=== PATIENT | male | born 1970 | race Caucasian/White ===

== ENCOUNTER 2022-12-22 10:31 | Outpatient (CLI) | payer MEDICARE, SELFPAY | END 2022-12-22 10:32 | disposition home or self-care (01) | PROVIDERS: PCP Family Medicine; Visit Provider Family Medicine | DX: Z00.00 Encounter for general adult medical examination without abnormal findings (principal); E11.9 Type 2 diabetes mellitus without complications; R53.83 Other fatigue; Z12.5 Encounter for screening for malignant neoplasm of prostate | CPT/HCPCS: 80048; 80061; 84153; 84403; 84443; 85025 ==

== ENCOUNTER 2023-04-27 09:38 | Outpatient (RCR) | payer MEDICARE, SELFPAY ==
--- NOTE | 2023-04-27 10:51 | PT.OPEX ---
PT [place] [facility] Eval PT [facility] Out[facility] Eval Start: 04/27/23 09:45 Freq: Status: Active Protocol: Document 04/27/23 09:50 ARR (Rec: 04/27/23 10:45 ARR [id number]) E-signed By Rossy Stallings DPT Physical Therapy Outpatient Evaluation Insurance Information Recert Due Date 04/27/23 Insurance Name Medicare B Medical Diagnosis M17.11 unilateral primary OA, right knee Z96.651 presence of right artificial knee joint S/p R TKA . One session prior to surgery. Post op to be done at [facility] PT. Treating Diagnosis M25.561 right knee pain M25.661 right knee stiffness Referring KEVIN Goodman ([facility]) Subjective Subjective Has TKA upcoming on 05/07. Has long history of LBP and surgeries with rods placed -Location of pain: R knee -Increases in pain: stairs ( must use step to pattern), walking PMHx: CAD, umbilical hernia, R knee OA, chronic LBP, peripheral neuropathy, PAULINE, HTN. Surgical history for partial L TKA, ORIF, lumbar surgery, R knee scope 2011. Objective Other/Pertinent Objective Knee ROM: -Flexion 130 L / 110 R -Extension 0 L / 15 R (lacking extension) OTHER: -Reduced patella glide all directions -Quad inhibition on R side -Negative extensor lag, lacking ext due to posterior chain tightness - Gait: antalgic gait with reduced WB'ing through R LE Assessment Assessment/Impression Pt is a 52 y/o male who presents with concerns of R knee pain with upcoming TKA on 05/07/23.. Patient also has notable objective findings including decreased knee ROM, quad inhibition, and weakness also likely contributing to the problem. Patient is a good candidate for skilled therapy to target deficits described above. Skilled PT intervention is necessary for use of therapeutic exercise manual therapy, neuromuscular re- education, gait training, and therapeutic activity. Functional impairments include difficulty with: walking, stairs. See appropriate sections of PT eval for complete list of goals and POC . D/C plan and criteria is for pt to achieve the goals as listed below or until max rehab potential is met. Pt was agreeable with plan of care and goals established. This will be a one time visit with treatment only as pt will be discharged after today and getting continued post op care at [facility] PT. Plan of Care Rehabilitation Potential Good Physical Therapy Goals STG (within 1 session) 1) Pt will be indep in HEP for pre-op exercises Treatment Plan/Direct Interventions Therapeutic Activities, Therapeutic Exercises Frequency/Duration 1 visit within 1 day Patient Will Be Discharged From Therapy Completion of LTG(s), Independent w/HEP Evaluation Billing Untimed Code Treatment Minutes 15 Complexity Moderate Certification Information Initial Certification Date 04/27/23 Ending Certification Date 04/27/23 Provider Signature Shows Agreement With POC & Medical Necessity Physician Signature & Date Requested Please Sign/Date Here Physician Comment/Change : Physician NPI Number #
== END 2023-08-25 23:59 | disposition home or self-care (01) ==
PROVIDERS: PCP Family Medicine; Visit Provider Physician Assistant
DX: M17.11 Unilateral primary osteoarthritis, right knee (principal); Z51.89 Encounter for other specified aftercare
CPT/HCPCS: 97110; 97162; 97530; A9270; J2250; J3010

== ENCOUNTER 2023-05-05 09:51 | Outpatient (CLI) | payer MEDICARE, SELFPAY ==
[2023-05-05 14:53] LABS: PCR FLU A Negative PCR FLU A (Negative); PCR FLU B Negative PCR FLU B (Negative); PCR RSV Negative PCR RSV (Negative); SARS PCR* Negative SARS-CoV-2 (Negative)
== END 2023-05-05 09:52 | disposition home or self-care (01) ==
PROVIDERS: PCP Family Medicine; Visit Provider Family Medicine
DX: Z01.818 Encounter for other preprocedural examination (principal); J02.9 Acute pharyngitis, unspecified
CPT/HCPCS: 80048; 85025; 87631

== ENCOUNTER 2023-05-07 10:52 | Day surgery (SDC) | payer MEDICARE, SELFPAY ==
[2023-05-07] VITALS (19 sets, daily range): BP systolic 117–182; BP diastolic 59–115; PULSE 48–72; RESP 14–20; TEMP 35.7–36.8; O2SAT 93–98; BMI 35.2
[2023-05-07] MEDS: OXYCODONE (CR) 10 MG TAB.ER.12H PO (11:55)
[2023-05-07] MEDS: CELECOXIB 200 MG CAPSULE PO (11:55)
[2023-05-07] MEDS: ACETAMINOPHEN 500 MG TABLET 1000 MG PO ×2 (11:55→18:33)
[2023-05-07] MEDS: SODIUM CHLORIDE 0.9 % (FLUSH) 10 ML SYRINGE IVF (12:00)
[2023-05-07] MEDS: LACTATED RINGERS 1000 ML 1,000 ML 100 ML IV ×2 (12:00→13:30)
[2023-05-07] MEDS: MIDAZOLAM HCL 1 MG/ML inj IVP (12:40)
[2023-05-07] MEDS: fentaNYL 100 MCG/2 ML inj IVP (12:40)
--- NOTE | 2023-05-07 12:49 | SUR.PREOP ---
TIME?OUT:?1238 PT/RN/MDA?VERIFICATION?OF?SURGICAL?SITE,?PROCEDURE,?AND?CONSENT OBTAINED?PRIOR?TO?INVASIVE?PROCEDURE.
[2023-05-07] MEDS: CEFAZOLIN 2 GM INJ IVP (13:00)
[2023-05-07] MEDS: TRANEXAMIC ACID 100 MG/ML INJ 1000 MG IV (13:03)
--- NOTE | 2023-05-07 14:27 | CRLHL7_ITS ---
For Patients: As a result of the Cures Act, medical imaging exams and procedure reports are released immediately into your electronic medical record. You may view this report before your referring provider. If you have questions, please contact your health care provider. Indication: post op TKA Technique: 2 views right knee Findings/Impression: Hardware from a right total knee arthroplasty is in satisfactory position. Bone alignment is normal. No sign of acute fracture. Postop changes are within normal limits. Dictated by Hussain Kaur MD @ 05/07/2023 3:49:35 PM (Electronically Signed)
--- NOTE | 2023-05-07 14:28 | PM.ORPRC ---
Procedure Note Date of procedure: 05/07/23 Procedure: PREOPERATIVE DIAGNOSIS: Right knee osteoarthritis POSTOPERATIVE DIAGNOSIS: Right knee osteoarthritis NAME OF OPERATION: Right total knee arthroplasty SURGEON: Steve Spain MD INTEL RECRUITER: Dalia Martines PA-C ANESTHESIA: Spinal ESTIMATED BLOOD LOSS: 0 mL COMPLICATIONS: None SPECIMENS: None DRAINS: None PREOPERATIVE ANTIBIOTICS: Ancef 2 grams, antibiotic impregnated cement IMPLANTS: 1. J&J Attune # 8 posterior stabilized femur 2. # 9 fixed-bearing tibia 3. # 8 posterior stabilized, 5 mm fixed-bearing polyethylene 4. 41 patella INDICATIONS: The patient is a 52-year-old with a longstanding history of severe, unrelenting right knee pain secondary to end-stage (grade IV) right knee osteoarthritis. Despite appropriate nonoperative management, including activity modification, anti-inflammatories, mvcm-eyv-vwfflbp pain medication, bracing, physical therapy, and injections they continue to have pain and disability. Operative intervention was offered. The risks, benefits and expected outcomes were discussed in detail. These included but were not limited to: Infection, bleeding, injury to blood vessel or nerve, venous thromboembolism. All questions were answered to their satisfaction. Use of an assistant corporate controller was necessary throughout the case for patient positioning and safety, soft tissue retraction, and closure. PROCEDURE: Spinal anesthesia was administered. The patient was placed supine on the operating table. The assistant corporate controller made sure the patient was positioned appropriately. The lower extremity was prepped and draped in the usual sterile fashion. The limb was exsanguinated with the Ho bandage. The pneumatic tourniquet was inflated to 300 mmHg. A standard anterior incision was made with the knee in flexion. Subcutaneous dissection was sharply taken through fascial layer #1. Full-thickness medial and lateral flaps were elevated. The assistant corporate controller retracted the soft tissues and protected them throughout the case. A standard medial parapatellar approach was made. The patella was everted. The infrapatellar fat pad was preserved. The menisci and cruciate ligaments were sharply d?brided. Marginal osteophytes were d?brided with the rongeur. The drill was used to penetrate the femoral canal. The canal was aspirated and irrigated with pulse lavage. The intramedullary femoral guide was placed for a 5-degree valgus cut, removing 12 mm off the distal femur. The saw was used to make the cut. Whitesides line and the trans epicondylar axis were marked. The femoral sizing guide was pinned onto the distal femur. Three degrees of external rotation nicely parallels the transepicondylar axis. Pins were placed for posterior referencing. The four-in-one cutting guide was pinned onto the distal femur. The anterior, posterior, and chamfer cuts were made. The assistant corporate controller protected the collateral ligaments. The box cutting guide was pinned. The box cuts were made. The boxed trial was placed and was an excellent fit. Drill holes for the lugs were made. Attention was then turned to the proximal tibia. The extramedullary tibial guide was placed for a neutral varus/valgus cut with 5 degrees of posterior slope, removing 2 mm based off the medial tibial surface. The assistant corporate controller protected the collateral ligaments and the neurovascular bundle. The saw was used to make the cut. Trial components were placed. The knee was tight in both flexion and extension. Therefore, we really placed the tibial cutting guide, advancing it 2 mm distally and recut the tibia. We replaced the trial components. Now the knee was nicely balanced in both flexion and extension. The trial components were removed. The tray was placed in appropriate rotation, parallel to our tibial cutting pins. It was pinned by the assistant corporate controller and the drill and the punch were used. The tray was removed. The punch was used again. We placed a bone plug in the femoral canal. Attention was then turned to the patella. Quileute patellar thickness was 28.5 mm. The lobster claw resection guide was used with the 9.5 mm tristin. The saw was used to make the cut. Drill holes were made by the assistant corporate controller. The trial was placed and was an excellent fit. Cancellous surfaces were irrigated with pulse lavage and thoroughly dried by the assistant corporate controller. We cemented the tibial component, then the femoral component. We impacted the 5 mm polyethylene onto the tibial tray. The knee was brought into full extension. We then cemented the patellar component. Excessive cement was removed. The cement was allowed to harden. The knee was taken through a range of motion and was found to be nicely balanced in both flexion and extension. The patella tracks centrally. The assistant corporate controller did a three minute dilute Betadine solution soak. The assistant corporate controller irrigated the wound with 3 liters of normal saline via pulse lavage. The assistant corporate controller reapproximated the extensor mechanism with #1 Vicryl in an interrupted edkrqs-mh-gkxry fashion. The assistant corporate controller then ran the extensor mechanism with a #1 PDO Stratafix. The assistant corporate controller closed the subcutaneous tissues with a 3-0 Stratafix and the skin with a running 3-0 Stratafix in a subcuticular fashion. Glue was used to seal the skin. The assistant corporate controller placed a dry dressing, KAYCEE stocking, and Polar Care. Sponge and needle counts were correct x2. The patient tolerated the procedure well. There were no apparent complications. They were carefully transferred to the hospital bed and taken to the postanesthesia care unit in satisfactory condition. PLAN: The patient will be mobilized with physical therapy. Aspirin will be used for DVT prophylaxis. They will be discharged to home once medically appropriate.
--- NOTE | 2023-05-07 15:01 | P.NB_ITS ---
Nerve Block Nerve Block Time Seen by Provider: 12:45 Date Seen: 05/07/23 Type of block requested by surgeon for post-operative analgesia: geniculars Side: right Time out performed: Yes Verification of patient name: Yes Verification of date of : Yes Site marking: site marked Name of person performing procedure: Prosper Continuous monitoring Was continuous monitoring of O2 sat, B/P, semiconductor packages leak tester, recorded every 15 minutes?: Yes Procedure Checklist: sterile prep, needles and gloves Medications given in 5ml increments after negative aspiration: Ropivicaine %: 0.5 mL: 9 Needle gauge: 25 Patient tolerated procedure well: Yes Block Charges Block Charge (with Pro Fee): Genicular Nerve Block Use of Ultrasound Machine for Block: No
--- NOTE | 2023-05-07 15:01 | W.PM.NB ---
Nerve Block Nerve Block Time Seen by Provider: 12:45 Date Seen: 05/07/23 Type of block requested by surgeon for post-operative analgesia: adductor canal Side: right Time out performed: Yes Verification of patient name: Yes Verification of date of : Yes Site marking: site marked Name of person performing procedure: Prosper Continuous monitoring Was continuous monitoring of O2 sat, B/P, playground monitor, recorded every 15 minutes?: Yes Procedure Checklist: sterile prep, needles and gloves Ultrasound guided. Images saved: Yes Medications given in 5ml increments after negative aspiration: Ropivicaine %: 0.5 mL: 20 Needle gauge: 20 Decadron (mg): 10 Precedex (mcg): 25 Patient tolerated procedure well: Yes Additional comments: Needle noted adjacent to nerve Block Charges Block Charge (with Pro Fee): Femoral Nerve Use of Ultrasound Machine for Block: Yes- US Guidance/pain block
--- NOTE | 2023-05-07 15:02 | W.ANESCHARGE ---
Anesthesia Charges Start Date/Time Anesthesia Start Date: 05/07/23 Anesthesia Start Time: 12:50 Stop Date/Time Anesthesia Stop Date: 05/07/23 Anesthesia Stop Time: 15:27
--- NOTE | 2023-05-07 15:28 | W.ANESCHARGE ---
Anesthesia Charges Start Date/Time Anesthesia Start Date: 05/07/23 Anesthesia Start Time: 12:50 Stop Date/Time Anesthesia Stop Date: 05/07/23 Anesthesia Stop Time: 15:27
--- NOTE | 2023-05-07 16:06 | SUR.PHASEI ---
patient met discharge criteria per anesthesia
--- NOTE | 2023-05-07 16:55 | PM.IMCN1 ---
Date of Consult Patient: [facility] Patient Consult date: 05/07/23 Requesting Physician: Orthopedics Primary Care Provider: Hussain Davis MD Consult Narrative Reason for consult: Postoperative medical management Narrative: Ruslan Raines is a 52 year old male seen in followup of right total knee arthroplasty for management of medical problems. Procedure performed today by Dr. Spain. No complications. Dr. Spain has requested consultation. Patient reports no concerns at this time. His block is just beginning to wear off and he is not having significant pain. He has no nausea. No shortness of breath. Preop physical 2 days ago diagnosed with acute bronchitis. Chest x-ray showed no acute infiltrate. Testing for influenza a and B, COVID, RSV were negative. Treated with Zithromax. He reports still having some cough. He has a little hoarseness in his voice. No fever. No dyspnea. Review of Systems Narrative: Review of systems negative except as noted above [facility] Medical History (Updated 05/07/23 @ 17:04 by Chip Soriano MD) Sleep apnea ?G47.30 - Sleep apnea, unspecified (ICD-10) Obesity ?E66.9 - Obesity, unspecified (ICD-10) Dyslipidemia ?E78.5 - Hyperlipidemia, unspecified (ICD-10) Coronary artery calcification ?I25.10 - Atherosclerotic heart disease of [place] coronary artery without angina pectoris (ICD-10) ?I25.84 - Coronary atherosclerosis due to calcified coronary lesion (ICD-10) Umbilical hernia ?K42.9 - Umbilical hernia without obstruction or gangrene (ICD-10) Osteoarthritis of right knee ?M17.11 - Unilateral primary osteoarthritis, right knee (ICD-10) Ptosis of eyelid, left ?H02.402 - Unspecified ptosis of left eyelid (ICD-10) Chronic low back pain ?M54.50 - Low back pain, unspecified (ICD-10) ?G89.29 - Other chronic pain (ICD-10) Erectile dysfunction ?N52.9 - Male erectile dysfunction, unspecified (ICD-10) Peripheral neuropathy ?G62.9 - Polyneuropathy, unspecified (ICD-10) Major depression, recurrent ?F33.9 - Major depressive disorder, recurrent, unspecified (ICD-10) PAULINE (generalized anxiety disorder) ?F41.1 - Generalized anxiety disorder (ICD-10) GERD (gastroesophageal reflux disease) ?K21.9 - Gastro-esophageal reflux disease without esophagitis (ICD-10) Primary hypertension ?I10 - Essential (primary) hypertension (ICD-10) Surgical History (Updated 05/07/23 @ 17:02 by Chip Soriano MD) History of arthroplasty of right knee ?Z96.651 - Presence of right artificial knee joint (ICD-10) History of vasectomy ?Z98.52 - Vasectomy status (ICD-10) History of total left knee replacement (TKR) ?Z96.652 - Presence of left artificial knee joint (ICD-10) History of arthroscopy of right knee (~2011) ?Z98.890 - Other specified postprocedural states (ICD-10) History of eye surgery ?Z98.890 - Other specified postprocedural states (ICD-10) History of open reduction and internal fixation (ORIF) procedure (2006) ?Z98.890 - Other specified postprocedural states (ICD-10) History of lumbar surgery ?Z98.890 - Other specified postprocedural states (ICD-10) Family History Father Coronary artery disease Paternal Grandfather Coronary artery disease Maternal Grandfather Coronary artery disease Brother Alcohol dependence Depression High blood pressure Mother Depression Sister Alcohol dependence Social History (Updated 05/07/23 @ 16:59 by Chip Soriano MD) Narrative: He lives with 2 roommates in [place]. One of his roommates is Sierra uriarte. She is present with him now and is his healthcare power of ip technology transactions attorney. Code status is DNR. He reports that he smokes and drinks about twice a month at social events with friends. What is your current living situation?: I presently have a place to live Problems where you live: no known problems In the past 12 months, utilities in danger of being shut off: no In past 12 months, lack of transportation kept you from medical appts, meetings, work, or getting things needed for daily living: no In the past 12 mos, have been you worried that your food would run out before you had money to buy more?: never true In the past 12 mos, the food you bought just didn't last and you didn't have money to buy more?: never true Highest level of school completed/degree received: decline to answer Smoking Status: Current some day smoker What tobacco products do you use: cigarettes Second hand tobacco smoke exposure: No How often do you have a drink containing alcohol: 2-4 times a month AUDIT-C Alcohol total score: 2 Non-prescribed substance use: denies use How often does anyone, including family, friends and others, physically hurt you: never How often does anyone, including family, friends and others, insult or talk down to you: never How often does anyone, including family, friends and others, threaten you with harm: never How often does anyone, including family, friends and others, scream or curse at you: never Little interest or pleasure in doing things: not at all Feeling down, depressed, or hopeless: not at all Meds Home Medications and Allergies Home Medications Medication Instructions Recorded Confirmed Type paroxetine HCl 40 mg tablet (Paxil) 40 mg PO DAILY 05/07/23 05/07/23 History Allergies Allergy/AdvReac Type Severity Reaction Status Date / Time No Known Drug Allergies Allergy Verified 05/05/23 09:49 Exam Narrative: Exam Narrative: He is alert and appears in no distress. Oropharynx with small airway. Neck is supple without mass or adenopathy. Respirations are clear to auscultation. Good air exchange all lung sam. Cardiovascular: S1, S2, distant heart sounds. No murmur gallop or rub. Abdomen: Bowel sounds active. Abdomen is soft without tenderness or mass. Lower extremities with some persistent numbness and weakness related to his block. He has no edema and intact pulses. Const: Vital Signs, click to edit/add: Vital Signs - 24 hr 05/07/23 11:21 05/07/23 12:42 05/07/23 15:24 Temperature 98.2 F 98.2 F Pulse Rate 53 L 57 L 61 Pulse Rate [Right Pulse Oximeter] Respiratory Rate 20 20 16 Blood Pressure 160/97 H 162/100 H 142/88 H Blood Pressure [Ri ght Arm] Pulse Oximetry 96 98 93 Oxygen Delivery Me thod Room Air Nasal Cannula Room Air Oxygen Flow Rate 3 05/07/23 15:30 05/07/23 15:35 05/07/23 15:40 Temperature 98.2 F 98.2 F 98.2 F Pulse Rate 64 62 48 L Pulse Rate [Right Pulse Oximeter] Respiratory Rate 14 14 14 Blood Pressure 140/105 H 151/93 H 150/94 H Blood Pressure [Ri ght Arm] Pulse Oximetry 95 95 95 Oxygen Delivery Me thod Room Air Room Air Room Air Oxygen Flow Rate 05/07/23 15:45 05/07/23 15:50 05/07/23 15:55 Temperature 98.2 F 97.3 F L 97.3 F L Pulse Rate 53 L 56 L 53 L Pulse Rate [Right Pulse Oximeter] Respiratory Rate 14 14 16 Blood Pressure 157/90 H 141/101 H 137/85 Blood Pressure [Ri ght Arm] Pulse Oximetry 96 96 96 Oxygen Delivery Me thod Room Air Room Air Room Air Oxygen Flow Rate 05/07/23 16:00 05/07/23 16:15 05/07/23 16:30 Temperature 96.4 F L 96.2 F L Pulse Rate Pulse Rate [Right Pulse Oximeter] 56 L 57 L 58 L Respiratory Rate 16 16 Blood Pressure Blood Pressure [Ri ght Arm] 117/59 L 131/89 160/99 H Pulse Oximetry 98 95 95 Oxygen Delivery Me thod Room Air Room Air Room Air Oxygen Flow Rate Documenting provider has reviewed patient's vital signs: yes Assessment and Plan Assessment and plan (1) History of arthroplasty of right knee: Problem comment: 05/07/2023. Dr. Spain. No complications. Status: Acute (2) Sleep apnea: Problem comment: Patient has been referred to sleep studies in the past. Never has followed through. Clinically appears to have sleep apnea. Monitor while in hospital Status: Suspected (3) Primary hypertension: Problem comment: with long history of proteinuria. Resume home medicine as blood pressure allows. Status: Chronic Plan 52-year-old male admitted to the hospital for right total knee arthroplasty. Doing well. Monitor chronic medical problems in the hospital and outpatient follow-up to address dyslipidemia and sleep apnea. Total time spent today is 40 minutes, 30 minutes in coordination of care and discussing with patient and other providers ongoing evaluation management of chronic medical problems and recovery from the surgery
[2023-05-07] MEDS: CARBOXYMETHYLCELLULOSE (REFRESH PLUS) TEARS 1 DROP EYE-BOTH ×2 (17:14→20:52)
[2023-05-07] MEDS: OXYCODONE 5 MG TABLET PO ×3 (17:47→21:52)
[2023-05-07] MEDS: CEFAZOLIN 2 GM in 0.9 % SODIUM CHLORIDE Mini-bag 100 ML IVPB (18:34)
--- NOTE | 2023-05-07 19:15 | PC.NURSE ---
End of shift report - Pt arrived to unit from PACU at approximately 16:00. Pt alert, oriented, and cooperative. Pt tolerating regular diet and fluids. Dressing clean, dry, and intact and cryocuff is in place. Pt reported pain as 8/10 at incision site. Medications given per MAR with little relief. Pt refused Dilaudid, voiced concerns related to potential medication reactions. Pt has not ambulated since surgery, has yet to void. Continues with IV fluids per MAR.
[2023-05-07] MEDS: SENNOSIDES 1 TAB TABLET 2 TAB PO (20:50)
[2023-05-07] MEDS: carvediloL 25 MG TABLET PO (20:51)
[2023-05-07] MEDS: HYDROmorphone 0.5 mg/0.5 ml inj IVP (20:51)
[2023-05-07] MEDS: ASPIRIN 81 MG TABLET EC PO (20:51)
[2023-05-07] MEDS: diphenhydrAMINE 50 MG/ML inj IVP (21:03)
[2023-05-07] MEDS: LACTATED RINGERS 1000 ML 1,000 ML 75 ML IV (23:37)
[2023-05-08] MEDS: ACETAMINOPHEN 500 MG TABLET 1000 MG PO ×2 (00:44→06:39)
[2023-05-08] MEDS: OXYCODONE 5 MG TABLET PO ×4 (00:45→09:30)
[2023-05-08] MEDS: ZOLPIDEM 5 MG TABLET 10 MG PO (00:45)
[2023-05-08] MEDS: hydrOXYzine pamoate 25 MG CAPSULE PO ×3 (00:45→10:46)
[2023-05-08 03:00] VITALS: BP 166/94; PULSE 64; RESP 18; TEMP 36.3; O2SAT 97
[2023-05-08] MEDS: CEFAZOLIN 2 GM in 0.9 % SODIUM CHLORIDE Mini-bag 100 ML IVPB (03:11)
[2023-05-08 06:33] LABS: Basophils Percent Auto 0.1 % (0.0-3.0); Hematocrit 48.6 % (37.0-53.0); Hemoglobin* 16.3 gm/dL (13.5-17.5); Immature Granulocytes Pct Auto 0.2 %; Lymphocytes Percent Auto 7.1 % (20-44); Mean Corpuscular HGB Conc 34 gm/dL (32-36); Mean Corpuscular Hemoglobin 31 pg (26-34); Mean Corpuscular Volume 93 fL (80-100); Monocytes Percent Auto 4.4 % (0.0-11.0); Neutrophils Percent Auto 88.2 % (42.0-72.0); Platelet Count* 214 K/uL (140-440); RDW Coefficient of Variation % 11.6 % (11.5-15.5); Red Blood Count 5.22 m/uL (4.30-5.90); White Blood Count* 14.35 K/uL (4.50-11.00)
--- NOTE | 2023-05-08 06:34 | PC.NURSE ---
Nursing shift note, 2850-2200: Pt alert and oriented. Rates pain 7-9/10 to R knee, cryo cuff in place, PRN Oxycodone, Atarax, scheduled Tylenol admin. Pt states tolerating pain but will get sharp, high intensity pain with movements. TEDs on, pt ref plexi boots on NOC. Saline locked after scheduled IV abx. Vitals stable, aside from con?t elevated BP, last one 166/94, pt denies symptoms. Able to sleep in between cares. Up SBA w/ walker to bathroom, voiding, no BM this shift. Tolerating PO intake, denies nausea. Pt uses call light appropriately.??
[2023-05-08] MEDS: OMEPRAZOLE 20 MG CAPSULE DR PO (06:39)
[2023-05-08 06:49] LABS: Potassium* 4.2 mmol/L (3.6-5.1); Sodium* 137 mmol/L (135-149)
[2023-05-08 06:50] LABS: Slide Review Reflex No
[2023-05-08 06:52] LABS: Creatinine* 0.7 mg/dL (0.5-1.5); Est. Creatinine Clearance* 135.49; Estimated Glomerular Filt Rate 111 ml/min
[2023-05-08 06:53] LABS: Blood Urea Nitrogen* 14 mg/dL (7-30)
[2023-05-08 07:00] VITALS: O2SAT 98
[2023-05-08 07:04] LABS: INR 0.93 (0.91-1.10)
[2023-05-08 08:07] VITALS: BP 140/84; PULSE 103; RESP 16; TEMP 36.9; O2SAT 98
[2023-05-08] MEDS: carvediloL 25 MG TABLET PO (09:26)
[2023-05-08] MEDS: buPROPion XL 150 MG TABLET 300 MG PO (09:26)
[2023-05-08] MEDS: ASPIRIN 81 MG TABLET EC PO (09:26)
[2023-05-08] MEDS: LOSARTAN POTASSIUM 50 MG TABLET 100 MG PO (09:27)
[2023-05-08] MEDS: SENNOSIDES 1 TAB TABLET 2 TAB PO (09:28)
[2023-05-08] MEDS: SPIRONOLACTONE 25 MG TABLET PO (09:30)
[2023-05-08] MEDS: PARoxetine 20 MG TABLET 40 MG PO (09:38)
--- NOTE | 2023-05-08 10:01 | PM.ORPN ---
Subjective Subjective Time Seen by Provider: 07:20 Date Seen: 05/08/23 Principal diagnosis: Status post right knee replacement Interval history: Ruslan states he is having pain in his right knee, especially over the quad tendon area and posterior knee. He will be discharging today. Ortho Exam Narrative Exam Narrative: Alert and oriented x3. Patient is in no acute distress. Converses without labored breathing. Hearing is grossly intact. Ambulates with a walker. Examination of the right knee shows the dressing is intact. Mild soft tissue edema. Mild effusion. Quad strength 5/5. CMS intact right lower extremity. Bilateral calves are soft and nontender Const Vital Signs, click to edit/add: Vital Signs - 24 hr 05/07/23 11:21 05/07/23 12:42 05/07/23 15:24 Temperature 98.2 F 98.2 F Pulse Rate 53 L 57 L 61 Pulse Rate [Right Pulse Oximeter] Respiratory Rate 20 20 16 Blood Pressure 160/97 H 162/100 H 142/88 H Blood Pressure [Right Arm] Pulse Oximetry 96 98 93 Oxygen Delivery Method Room Air Nasal Cannula Room Air Oxygen Flow Rate 3 05/07/23 15:30 05/07/23 15:35 05/07/23 15:40 Temperature 98.2 F 98.2 F 98.2 F Pulse Rate 64 62 48 L Pulse Rate [Right Pulse Oximeter] Respiratory Rate 14 14 14 Blood Pressure 140/105 H 151/93 H 150/94 H Blood Pressure [Right Arm] Pulse Oximetry 95 95 95 Oxygen Delivery Method Room Air Room Air Room Air Oxygen Flow Rate 05/07/23 15:45 05/07/23 15:50 05/07/23 15:55 Temperature 98.2 F 97.3 F L 97.3 F L Pulse Rate 53 L 56 L 53 L Pulse Rate [Right Pulse Oximeter] Respiratory Rate 14 14 16 Blood Pressure 157/90 H 141/101 H 137/85 Blood Pressure [Right Arm] Pulse Oximetry 96 96 96 Oxygen Delivery Method Room Air Room Air Room Air Oxygen Flow Rate 05/07/23 16:00 05/07/23 16:15 05/07/23 16:30 Temperature 96.4 F L 96.2 F L Pulse Rate Pulse Rate [Right Pulse Oximeter] 56 L 57 L 58 L Respiratory Rate 16 16 Blood Pressure Blood Pressure [Right Arm] 117/59 L 131/89 160/99 H Pulse Oximetry 98 95 95 Oxygen Delivery Method Room Air Room Air Room Air Oxygen Flow Rate 05/07/23 16:45 05/07/23 16:45 05/07/23 17:00 Temperature 96.4 F L 96.6 F L 96.6 F L Pulse Rate 56 L Pulse Rate [Right Pulse Oximeter] 58 L 61 Respiratory Rate 16 16 16 Blood Pressure Blood Pressure [Right Arm] 117/59 L 172/93 H 159/94 H Pulse Oximetry 96 97 Oxygen Delivery Method Room Air Room Air Room Air Oxygen Flow Rate 05/07/23 17:30 05/07/23 18:00 05/07/23 19:00 Temperature 96.8 F L 97.6 F Pulse Rate Pulse Rate [Right Pulse Oximeter] 57 L 61 57 L Respiratory Rate 16 16 18 Blood Pressure Blood Pressure [Right Arm] 175/96 H 182/103 H 173/115 H Pulse Oximetry 97 93 93 Oxygen Delivery Method Room Air Room Air Room Air Oxygen Flow Rate 05/07/23 20:00 05/07/23 23:30 05/07/23 23:30 Temperature 98.1 F Pulse Rate Pulse Rate [Right Pulse Oximeter] 57 L 72 Respiratory Rate 18 Blood Pressure Blood Pressure [Right Arm] 169/99 H Pulse Oximetry 93 93 Oxygen Delivery Method Room Air Oxygen Flow Rate 05/07/23 23:30 05/08/23 03:00 05/08/23 07:00 Temperature 98.3 F 97.3 F L Pulse Rate Pulse Rate [Right Pulse Oximeter] 72 64 Respiratory Rate 18 18 Blood Pressure Blood Pressure [Right Arm] 161/92 H 166/94 H Pulse Oximetry 93 97 98 Oxygen Delivery Method Room Air Room Air Oxygen Flow Rate 0 05/08/23 08:07 Temperature 98.5 F Pulse Rate Pulse Rate [Right Pulse Oximeter] 103 H Respiratory Rate 16 Blood Pressure Blood Pressure [Right Arm] 140/84 H Pulse Oximetry 98 Oxygen Delivery Method Room Air Oxygen Flow Rate Assessment and Plan Assessment and plan (1) Status post right knee replacement: Problem details: 05/07/2023 Status: Acute Assessment and Plan: Plan for discharge is today to home if they meet discharge criteria. DVT prophylaxis includes aspirin 81 mg twice daily x1 month, Kwesi stockings x1 month may remove for 1 hr per day, frequent ambulation Remove dressing in 1 week. Observe wound and phone Orthopedics with any questions or concerns Return to clinic in 1 week for a wound check Return to clinic in 6 weeks with surgeon Minimize narcotic use. Wean off and discontinue soon as possible. Activities as tolerated. No strenuous activity. Outpatient physical therapy as scheduled. Ice and elevate the operative extremity. No restriction on ice.
--- NOTE | 2023-05-08 11:27 | PC.NURSE ---
Patient discharged at 1115 today with transportation provided by friend [place]. PRN Oxycodone, rest, repositioning and cryocuff utilized for pain management. Patient independent with eating, dressing, toileting, transferring and ambulation to BR prior to discharge. Dressing to R knee noted to be clean, dry and intact and CMS intact before discharge. IV removed from L inner forearm prior to discharge. Medications and discharge plan reviewed prior to discharge.
== END 2023-05-08 11:15 | disposition home or self-care (01) ==
LOC: OR 10:52 → MEDSURG 10:53
PROVIDERS: PCP Family Medicine; Visit Provider Orthopaedic Surgery
PROC: (CPT 27447; principal; 2023-05-07 13:15)
DX: M17.11 Unilateral primary osteoarthritis, right knee (principal); G89.18 Other acute postprocedural pain; J20.9 Acute bronchitis, unspecified; G47.30 Sleep apnea, unspecified; E66.9 Obesity, unspecified; I10 Essential (primary) hypertension; Z68.35 Body mass index [BMI] 35.0-35.9, adult
CPT/HCPCS: 27447; 01402; 36415; 64447; 64454; 73560; 76942; 82565; 84132; 84295; 84520; 85025; 85610; 97110; 97116; 97162; 97165; 97535; A9270; C1776; J0690; J1100; J1170; J1200; J2250; J2405; J2704; J2795; J3010; J7120

== ENCOUNTER 2023-06-18 11:10 | Day surgery (SDC) | payer MEDICARE, SELFPAY ==
[2023-06-18] VITALS (11 sets, daily range): BP systolic 124–160; BP diastolic 78–104; PULSE 55–71; RESP 14–18; TEMP 36.2–36.9; O2SAT 95–98; BMI 37.0
--- NOTE | 2023-06-18 12:44 | SUR.PREOP ---
TIME?OUT:?1244 PT/RN/MDA?VERIFICATION?OF?SURGICAL?SITE,?PROCEDURE,?AND?CONSENT OBTAINED?PRIOR?TO?INVASIVE?PROCEDURE.
[2023-06-18] MEDS: MIDAZOLAM HCL 1 MG/ML inj IVP (12:47)
[2023-06-18] MEDS: LACTATED RINGERS 1000 ML 1,000 ML 100 ML IV (12:47)
[2023-06-18] MEDS: fentaNYL 100 MCG/2 ML inj IVP (12:47)
[2023-06-18] MEDS: SODIUM CHLORIDE 0.9 % (FLUSH) 10 ML SYRINGE IVF (12:47)
--- NOTE | 2023-06-18 13:29 | W.PM.NB ---
Nerve Block Nerve Block Time Seen by Provider: 12:00 Date Seen: 06/18/23 Type of block requested by surgeon for post-operative analgesia: femoral Side: right Time out performed: Yes Verification of patient name: Yes Verification of date of : Yes Site marking: site marked Name of person performing procedure: Prosper Continuous monitoring Was continuous monitoring of O2 sat, B/P, measurement and verification engineer, recorded every 15 minutes?: Yes Procedure Checklist: sterile prep, needles and gloves Ultrasound guided. Images saved: Yes Medications given in 5ml increments after negative aspiration: Ropivicaine %: 0.5 mL: 20 Needle gauge: 20 Decadron (mg): 10 Precedex (mcg): 25 Patient tolerated procedure well: Yes Additional comments: Needle noted adjacent to nerve Block Charges Block Charge (with Pro Fee): Femoral Nerve Use of Ultrasound Machine for Block: Yes- US Guidance/pain block
--- NOTE | 2023-06-18 13:32 | W.ANESCHARGE ---
Anesthesia Charges Start Date/Time Anesthesia Start Date: 06/18/23 Anesthesia Start Time: 12:58 Stop Date/Time Anesthesia Stop Date: 06/18/23 Anesthesia Stop Time: 14:56
--- NOTE | 2023-06-18 14:11 | PM.ORPRC ---
Procedure Note Date of procedure: 06/18/23 Procedure: PREOPERATIVE DIAGNOSIS: Right TKA postoperative quads tendon tear POSTOPERATIVE DIAGNOSIS: Right TKA postoperative quads tendon tear NAME OF OPERATION: Right knee quads tendon repair SURGEON: Steve Spain MD BUSINESS EMPLOYMENT SPECIALIST: Dalia Martines PA-C ANESTHESIA: Spinal ESTIMATED BLOOD LOSS: 0 mL COMPLICATIONS: None SPECIMENS: None DRAINS: None PREOPERATIVE ANTIBIOTICS: Ancef 3 grams IMPLANTS: None INDICATIONS: The patient is a 52-year-old who recently underwent total knee arthroplasty. In the early postoperative period he had an event, injuring his knee. He sustaining the above diagnosis. Operative intervention was recommended. The risks, benefits and expected outcomes were discussed in detail. These included but were not limited to: Infection, bleeding, injury to blood vessel or nerve, venous thromboembolism. All questions were answered to their satisfaction. Use of an nutrition services assistant was necessary throughout the case for patient positioning and safety, soft tissue retraction, and closure. PROCEDURE: A femoral nerve block was placed. Spinal anesthesia was administered. The patient was placed supine on the operating table. The right lower extremity was prepped and draped in the usual sterile fashion. The limb was exsanguinated with the Ho bandage. The pneumatic tourniquet was inflated to 300 mmHg. The previously placed standard TKA incision was utilized. Subcutaneous dissection was taken sharply to the quads tendon. Full-thickness medial and lateral flaps were elevated. The entire medial retinacular repair was found to be completely ruptured. This propagated laterally to include a portion of vastus lateralis insertion. Hematoma and residual suture were removed with the curette, rongeur and the pulse statistics intern. We did a three minute dilute Betadine solution soak. We irrigated the wound with 3 liters of normal saline via pulse lavage. We closed the medial and lateral retinacula with a 1.7 mm suture tape in an interrupted [id number] fashion. This was supplemented with a # 1 Vicryl suture in an interrupted figure 8 fashion and a # 2 Stratafix in a running fashion. Subcutaneous tissues were closed with a 3-0 Stratafix and the skin with a running 3-0 Stratafix in a subcuticular fashion. Glue was used to seal the skin. A dry dressing, KAYCEE stocking, and T scope brace were applied. Sponge and needle counts were correct x2. The patient tolerated the procedure well. There were no apparent complications. They were carefully transferred to the hospital bed and taken to the postanesthesia care unit in satisfactory condition. PLAN: The patient will be discharged to home. They may weightbear as tolerates with the brace locked in full extension. 0-20 degrees range of motion will be allowed for the 1st 2 weeks postoperatively, then 0-40 degrees for 2 weeks, then 0-60 degrees x2 weeks, then 0-90 degrees. They will follow up in the office in 1-2 weeks for a wound check. We will hold physical therapy for the time being.
--- NOTE | 2023-06-18 14:57 | W.ANESCHARGE ---
Anesthesia Charges Start Date/Time Anesthesia Start Date: 06/18/23 Anesthesia Start Time: 12:58 Stop Date/Time Anesthesia Stop Date: 06/18/23 Anesthesia Stop Time: 14:56
--- NOTE | 2023-06-18 15:14 | SUR.PHASEI ---
patient met discharge criteria per clerical and office support workers (Dino Zarate)
--- NOTE | 2023-06-18 16:24 | SUR.PHASEII ---
1600 Pt ambulated to bathroom with walker, brace locked and SBA. Tolerated without difficulty.
== END 2023-06-18 16:20 | disposition home or self-care (01) ==
PROVIDERS: PCP Family Medicine; Visit Provider Orthopaedic Surgery
PROC: (CPT 27385; principal; 2023-06-18 12:45)
DX: S76.111A Strain of right quadriceps muscle, fascia and tendon, initial encounter (principal); Z96.651 Presence of right artificial knee joint; G89.18 Other acute postprocedural pain
CPT/HCPCS: 27385; 1250; 1320; 64447; 76942; J1100; J2250; J2405; J2704; J2795; J3010; J7120; L1833